=== PATIENT | female | born 1965 | race African-American/Black ===

== ENCOUNTER 2018-09-15 03:36 | Emergency (ER) | payer BC ==
[2018-09-15 04:36] LABS: #Eosinphils 0.3 thou/uL (0.0-0.7); #Lymphocytes 1.3 thou/uL (1.20-3.40); #Monocytes 0.6 thou/uL (0.11-0.59); #Neutrophils 6.4 thou/uL (1.40-6.50); %Basophils 0.3 % (0.0-1.0); %Eosinophils 3.8 % (0.0-10.0); %Lymphocytes 15.2 % (21.0-51.0); %Monocytes 6.8 % (0.0-10.0); Hemoglobin 14.5 g/dL (12.0-16.0); Mean Corpuscular HGB CONC 33.6 g/dL (32.0-36.0); Mean Corpuscular Hemoglobin 30.5 pg (27.0-31.0); Mean Corpuscular Volume 90.7 fL (78.0-98.0); Mean Platelet Volume 7.4 fL (7.4-10.4); Platelet Count 217 thou/uL (130-400); RBC Distribution Width 13.2 % (11.5-14.5); Red Blood Cell (RBC) Count 4.76 mill/uL (4.20-5.40); White Blood Cell (WBC) Count 8.7 thou/uL (4.8-10.8)
[2018-09-15 05:00] LABS: Lactic Acid 0.7 mmol/L (0.5-2.2)
[2018-09-15 05:02] LABS: ALT (SGPT) 22 U/L (8-55); AST (SGOT) 19 U/L (5-34); Albumin 3.9 g/dL (3.5-5.0); Alkaline Phosphatase 63 U/L (40-150); Anion Gap 10 mmol/L (10-20); BUN (Urea Nitrogen) 11 mg/dL (9.8-20.1); Bilirubin, Total 0.5 mg/dL (0.2-1.2); Calc. Creatinine Clearance 0 mL/min (70-130); Calcium 8.9 mg/dL (7.8-10.44); Carbon Dioxide 29 mmol/L (22-29); Chloride 103 mmol/L (98-107); Estimated GFR-MDRD 80; Globulin 3.5 g/dL (2.4-3.5); Glucose 154 mg/dL (70-105); Potassium 3.7 mmol/L (3.5-5.1); Protein, Total 7.4 g/dL (6.0-8.3); Sodium 138 mmol/L (136-145)
[2018-09-15 05:23] LABS: Bilirubin Negative (Negative); Blood, Urine Negative (Negative); Clarity CLEAR (Clear); Glucose, Urine (Dipstick) Negative (Negative); Leukocyte Trace (Negative); Nitrite Negative (Negative); Protein, Urine (Dipstick) Negative (Neg-Trace); Specific Gravity, Urine 1.015 (1.002-1.036); Urobilinogen 0.2 mg/dL (0.2-1.0)
[2018-09-15 05:30] LABS: Bacteria/HPF None Seen HPF (None Seen); Hyaline Casts/LPF 0-3 HYALINE CAST LPF (0-3 Hyaline); Pathc Cast-AUWi Flag 0.43 (0-2.49)
[2018-09-15] MEDS ORDERED: cefTRIAXone\\ROCEPHIN 1 GM VIAL ONE (05:48)
[2018-09-15] MEDS ORDERED: Azithromycin 250 MG TAB ONE (05:49)
--- NOTE | 2018-09-15 07:36 | CT ---
CTA OF THE THORAX UTILIZING IV CONTRAST AND 3D REFORMATTED IMAGING: Date: 09/15/18 INDICATION: 52-year-old female with cough, thick sputum, and bloody sputum since this morning. COMPARISON: Prior chest dated 09/15/18 and a CTA angio of chest dated 09/20/16. FINDINGS: No central or segmental pulmonary embolus is evident. There are patchy reticulonodular opacities with more confluent air space opacities present within the right lower lobe suspicious for bronchopneumon ia. There are areas of subsegmental atelectasis involving both lower lobes. Minimal patchy opacities are present within the right upper lobe. There is scattered emphysema. No pathologically enlarged lym ph nodes are evident. There is a small hiatal hernia. Heart and great vessels appear within normal li mits. Visualized adrenal glands appear within normal limits. Visualized aspects of the liver, pancrea s, and spleen appear within normal limits. There is scattered degenerative and osteoarthritic change. IMPRESSION: 1. Reticulonodular opacities mixed with more confluent air space opacities within the right lower lo be and right upper lobe suspicious for pneumonia. Recommend radiographic follow-up to resolution. 2. No definite central or segmental pulmonary embolus demonstrated. 3. Small hiatal hernia. 4. Emphysema. POS: BH
--- NOTE | 2018-09-15 08:11 | RAD ---
PA AND LATERAL CHEST: History: Cough. FINDINGS/IMPRESSION: Comparison is made with exam of 11-21-12. The heart size is normal. The lungs are expanded. There is mild prominence of the interstitial markin gs predominately in the mid and lower lung cunningham. Interstitial infiltrates. No lobar consolidation, pneumothoraces, or pleural effusions seen. There degenerative changes in the spine. POS: OFF
== END 2018-09-15 06:50 | disposition home or self-care (01) ==
LOC: ERS 03:36
DX: J18.1 Lobar pneumonia, unspecified organism (principal); E11.9 Type 2 diabetes mellitus without complications; I10 Essential (primary) hypertension; Z79.899 Other long term (current) drug therapy; Z79.84 Long term (current) use of oral hypoglycemic drugs
CPT/HCPCS: 36415; 71046; 71275; 80053; 81003; 81015; 83605; 84484; 85025; 85379; 87040; 87086; 87804; 93005; 96365; J0696

== ENCOUNTER 2018-12-08 05:40 | Emergency (ER) | payer BC | END 2018-12-08 06:14 | disposition home or self-care (01) | LOC: ERS 05:40 | DX: R50.9 Fever, unspecified (principal); E11.9 Type 2 diabetes mellitus without complications; E78.5 Hyperlipidemia, unspecified; I10 Essential (primary) hypertension; Z79.899 Other long term (current) drug therapy; Z79.84 Long term (current) use of oral hypoglycemic drugs | CPT/HCPCS: 99283 ==